=== PATIENT | male | born 1950 | race Caucasian/White ===

== ENCOUNTER 2020-07-03 16:12 | Inpatient (IN) | payer MEDICARE ==
[~2020-07-03] VITALS: Ht 177.8 cm; Wt 93.4 kg
[2020-07-03] VITALS (19 sets, daily range): BP systolic 95–271; BP diastolic 54–132
[2020-07-03] MEDS ORDERED: MIDAZOLAM HCL 1 MG/ML 2ML VIAL ONE (16:32)
[2020-07-03] MEDS ORDERED: FENTANYL CITRATE PF 50 MCG/1 ML 2ML VIAL ONE (16:32)
[2020-07-03 16:48] LABS: BASOPHILS % (AUTO) 0.4 % (0.0-5.0); EOSINOPHILS % (AUTO) 0.2 % (0.0-8.0); HEMATOCRIT 54.1 % (42-54); LYMPHOCYTES % (AUTO) 9.4 % (21.0-51.0); MEAN CORPUSCULAR HEMOGLOBIN 27.7 pg (27.0-33.0); MEAN CORPUSCULAR HGB CONC 33.3 g/dL (32.0-36.0); MEAN CORPUSCULAR VOLUME 83.2 fL (79-99); MONOCYTES % (AUTO) 4.5 % (3.0-13.0); NEUTROPHILS % (AUTO) 85.2 % (40.0-77.0); PLATELET COUNT (AUTO) 226 K/uL (130-400); RED CELL DISTRIBUTION WIDTH 14.1 % (11.0-15.5); WHITE BLOOD COUNT (AUTO) 14.1 K/uL (4.8-10.8)
[2020-07-03 16:59] LABS: CREATININE 0.7 mg/dL (0.5-1.5); POTASSIUM 3.3 mmol/L (3.5-5.1)
[2020-07-03 17:02] LABS: INR 1.11 (0.85-1.15)
[2020-07-03 17:04] LABS: ALBUMIN 3.6 g/dL (3.5-5.0); BILIRUBIN,TOTAL 0.7 mg/dL (0.2-1.0); PARTIAL THROMBOPLASTIN TIME 27.6 SEC (26.3-35.5); TOTAL PROTEIN, SERUM 7.6 g/dL (6.0-8.3)
[2020-07-03] MEDS ORDERED: CEFAZOLIN SODIUM 1 GM VIAL ONE (17:18)
[2020-07-03] MEDS ORDERED: BUPIVACAINE/EPI/PF 0.25% 30ML VIAL IJ ONE (17:18)
[2020-07-03] MEDS ORDERED: THROMBIN-JMI 20000 UNIT KIT TP ONE (17:18)
[2020-07-03] MEDS ORDERED: PROPOFOL 10 MG/ML 20ML VIAL IV ONE (17:52)
[2020-07-03] MEDS ORDERED: ESMOLOL HCL 10 MG/ML 10 ML VIAL ONE (18:17)
[2020-07-03] MEDS ORDERED: LACTATED RINGERS 1000ML 1,000 ML IV SCH (18:30)
[2020-07-03] MEDS ORDERED: NICARDIPINE IV SCH (19:00)
[2020-07-03] MEDS ORDERED: NACL 0.9% IV SCH (19:00)
[2020-07-03] MEDS ORDERED: HYDRALAZINE 20MG/ML VIAL IV PRN (19:00)
[2020-07-03] MEDS ORDERED: PHENYTOIN IV ONE (20:30)
[2020-07-03] MEDS ORDERED: DIAZEPAM 5 MG/ML 2 ML SYG IV PRN (20:30)
[2020-07-03] MEDS ORDERED: NACL 0.9% IV ONE (20:30)
[2020-07-03] MEDS ORDERED: DIAZEPAM 5 MG/ML 2 ML SYG ONE (20:37)
[2020-07-03] MEDS ORDERED: COMPOUND IV MISC 1 EACH IVSOLN MISC PRN (20:45)
[2020-07-03] MEDS ORDERED: [UNRECOGNIZED DRUG - OTHER] IV SCH (20:45)
[2020-07-03] MEDS ORDERED: PHENYTOIN IV SCH (20:45)
[2020-07-03] MEDS ORDERED: LEVETIRACETAM 1,000 MG in 0.9%NACL 100ML 100 ML IV SCH (21:00)
[2020-07-04] VITALS (13 sets, daily range): BP systolic 90–150; BP diastolic 57–95
[2020-07-04] MEDS ORDERED: CEFAZOLIN SODIUM 100 GM IV SCH (01:00)
[2020-07-04] MEDS ORDERED: LIDOCAINE HCL-MPF 1% 2ML VIAL IV PRN (06:00)
[2020-07-04] MEDS ORDERED: POTASSIUM CHLORIDE 20MEQ/100ML 100 ML IV PRN (06:00)
[2020-07-04 06:26] LABS: BASOPHILS % (AUTO) 0.1 % (0.0-5.0); HEMATOCRIT 49.6 % (42-54); LYMPHOCYTES % (AUTO) 7.7 % (21.0-51.0); MEAN CORPUSCULAR HEMOGLOBIN 28.1 pg (27.0-33.0); MEAN CORPUSCULAR HGB CONC 33.7 g/dL (32.0-36.0); MEAN CORPUSCULAR VOLUME 83.4 fL (79-99); MONOCYTES % (AUTO) 4.5 % (3.0-13.0); NEUTROPHILS % (AUTO) 87.4 % (40.0-77.0); PLATELET COUNT (AUTO) 221 K/uL (130-400); RED BLOOD CELL COUNT(AUTO) 5.95 MIL/uL (4.50-6.20); WHITE BLOOD COUNT (AUTO) 13.4 K/uL (4.8-10.8)
[2020-07-04 06:35] LABS: CREATININE 0.9 mg/dL (0.5-1.5); POTASSIUM 3.6 mmol/L (3.5-5.1)
[2020-07-04 06:36] LABS: HEMOGLOBIN A1C 6.7 % (4.0-6.0)
[2020-07-04 06:47] LABS: ALBUMIN 3.1 g/dL (3.5-5.0); BILIRUBIN,TOTAL 0.5 mg/dL (0.2-1.0); MAGNESIUM 2.7 mg/dL (1.80-2.40); PHOSPHORUS 3.4 mg/dL (2.5-4.9); THYROID STIMULATING HORMONE 0.31 uIU/mL (0.36-3.74); TOTAL PROTEIN, SERUM 6.7 g/dL (6.0-8.3)
[2020-07-04] MEDS ORDERED: [UNRECOGNIZED DRUG - OTHER] IV SCH (09:00)
[2020-07-04] MEDS ORDERED: PHENYTOIN IV SCH (09:00)
== END 2020-07-04 10:50 | disposition left against medical advice (07) | DRG 26 ==
LOC: EDH 16:12 → EDSTATUS 16:16 → EDHIP 18:18 → 2CH 19:00
PROVIDERS: ADMIT Internal Medicine; ATTEND Internal Medicine
PROC: 00C40ZZ Extirpation of Matter from Intracranial Subdural Space, Open Approach (ICD-10-PCS; principal; 2020-07-03 17:27)
DX: S06.5X0A Traumatic subdural hemorrhage without loss of consciousness, initial encounter (principal); G40.89 Other seizures; E78.00 Pure hypercholesterolemia, unspecified; S01.512A Laceration without foreign body of oral cavity, initial encounter; E78.5 Hyperlipidemia, unspecified; X58.XXXA Exposure to other specified factors, initial encounter; I10 Essential (primary) hypertension; Z53.29 Procedure and treatment not carried out because of patient's decision for other reasons; E66.9 Obesity, unspecified; Z87.891 Personal history of nicotine dependence; Z91.81 History of falling; Y93.89 Activity, other specified; Y92.89 Other specified places as the place of occurrence of the external cause; Y99.8 Other external cause status; Z68.29 Body mass index [BMI] 29.0-29.9, adult
CPT/HCPCS: 36415; 70450; 80053; 80061; 82140; 83036; 83735; 84100; 84145; 84443; 84484; 85025; 85610; 85730; 97039; A4344; C1713; G0378; J0690; J1165; J1953; J2250; J2704; J3010; J3360; J3490; J7040; J7050; J7120